=== PATIENT | male | born 1985 | race American Indian/Alaskan Native ===

== ENCOUNTER 2021-12-19 17:07 | Emergency (ER) | payer OTHER ==
--- NOTE | 2021-12-19 23:18 | Emergency Department Report ---
ED General Adult HPI - General Chief complaint: Allergic Reaction Stated complaint: SWOLLEN FACE Source: patient Mode of arrival: Ambulatory Limitations: No Limitations - History of Present Illness Initial comments: Patient is a 36-year-old -[place] male with no past medical history who presents to the ED with complaint of acute onset persistent painful swollen mild erythematous maculopapular rash on left temporal scalp for the last 3 days. Patient states that he shaved the his face about 5 days ago and developed a small papular rash which has been painful and that he noticed about 12 hours ago that the rash had opened and was draining thick purulent discharge. Patient states that he then progressed and squeezed the wound and emptied the contents of the rash but that the pain and the swelling has worsened. Patient denies fever, chills, nausea and vomiting, headache, dizziness, syncope, traumatic injury, cough, sore throat and neck pain. MD Complaint: Swollen painful rash on left temporal area of the face -: Sudden, days(s) (3) Location: face (left temporal face) Radiation: non-radiation Severity scale (0 -10): 8 Quality: aching, sharp Consistency: constant Improves with: none Worsens with: none Associated Symptoms: denies other symptoms, rash (swollen painful rash on left temporal face). denies: confusion, chest pain, cough, diaphoresis, fever/chills, headaches, loss of appetite, malaise, nausea/vomiting, shortness of breath, syncope, weakness Treatments Prior to Arrival: none - Related Data Previous Rx's Medication Instructions Recorded Last Taken Type Ibuprofen [Motrin] 800 mg PO Q8HR PRN #30 tablet 12/19/21 Unknown Rx Sulfamethoxazole/Trimethoprim 1 each PO Q12H #20 tab 12/19/21 Unknown Rx [Bactrim DS TAB] Allergies Allergy/AdvReac Type Severity Reaction Status Date / Time No Known Allergies Allergy Verified 12/19/21 17:18 ED Review of Systems ROS: Stated complaint: SWOLLEN FACE Other details as noted in HPI Constitutional: denies: chills, fever Eyes: denies: eye pain, eye discharge, vision change ENT: other (swollen painful rash on left temporal scalp). denies: ear pain, throat pain Respiratory: denies: cough, shortness of breath, wheezing Cardiovascular: denies: chest pain, palpitations Endocrine: no symptoms reported Gastrointestinal: denies: abdominal pain, nausea, vomiting, diarrhea Genitourinary: denies: urgency, dysuria Musculoskeletal: denies: back pain, joint swelling, arthralgia Skin: rash (swollen painful rash on left temporal scalp). denies: lesions Neurological: denies: headache, weakness, paresthesias Psychiatric: denies: anxiety, depression Hematological/Lymphatic: denies: easy bleeding, easy bruising ED Past Medical Hx - Past Medical History Previous Medical History?: No - Surgical History Past Surgical History?: No - Medications Home Medications: Home Medications Medication Instructions Recorded Confirmed Last Taken Type Ibuprofen [Motrin] 800 mg PO Q8HR PRN #30 tablet 12/19/21 Unknown Rx Sulfamethoxazole/Trimethoprim 1 each PO Q12H #20 tab 12/19/21 Unknown Rx [Bactrim DS TAB] ED Physical Exam - General Limitations: No Limitations General appearance: alert, in no apparent distress - Head Head exam: Present: atraumatic, normocephalic, normal inspection - Eye Eye exam: Present: normal appearance, PERRL, EOMI Pupils: Present: normal accommodation - ENT ENT exam: Present: normal exam, normal orophraynx, mucous membranes moist, TM's normal bilaterally, normal external ear exam - Neck Neck exam: Present: normal inspection, full ROM. Absent: tenderness - Respiratory Respiratory exam: Present: normal lung sounds bilaterally. Absent: respiratory distress, wheezes, rales, rhonchi, chest wall tenderness, accessory muscle use - Cardiovascular Cardiovascular Exam: Present: regular rate, normal rhythm, normal heart sounds. Absent: systolic murmur, diastolic murmur, rubs, gallop - GI/Abdominal GI/Abdominal exam: Present: soft, normal bowel sounds. Absent: tenderness, guarding, rebound, hyperactive bowel sounds, hypoactive bowel sounds, organomegaly - Extremities Exam Extremities exam: Present: normal inspection, full ROM, normal capillary refill. Absent: tenderness - Back Exam Back exam: Present: normal inspection, full ROM. Absent: tenderness, CVA tenderness (R), CVA tenderness (L), muscle spasm, paraspinal tenderness - Neurological Exam Neurological exam: Present: alert, oriented X3, CN II-XII intact, normal gait, reflexes normal - Psychiatric Psychiatric exam: Present: normal affect, normal mood - Skin Skin exam: Present: warm, dry, intact, rash (swollen tender maculopapular nonfluctuant rash on left temporal scalp), erythema. Absent: normal color ED Course Vital Signs 12/19/21 17:18 Temperature 98.4 F Pulse Rate 86 Respiratory 16 Rate Blood Pressure 127/88 [Left] ED Medical Decision Making - Medical Decision Making This is a 36-year-old -[place] male with no past medical history who presents to the ED with complaint of acute onset persistent painful swollen mild erythematous maculopapular rash on left temporal scalp for the last 3 days. Patient states that he shaved the his face about 5 days ago and developed a small papular rash which has been painful and that he noticed about 12 hours ago that the rash had opened and was draining thick purulent discharge. Patient states that he then progressed and squeezed the wound and emptied the contents of the rash but that the pain and the swelling has worsened. In the ED, patient is alert and oriented x3 and is not in any distress. Based on the history and physical exam findings, the patient will discharge home on pain medications and advised to follow-up with his primary care physician in 7 to 10 days for reevaluation or return to the ED immediately if symptoms get worse. - Differential Diagnosis folliculitis; cellulitis; cutaneous abscess Critical care attestation.: If time is entered above; I have spent that time in minutes in the direct care of this critically ill patient, excluding procedure time. ED Disposition Clinical Impression: Cutaneous abscess of face, Cellulitis and abscess of face, Acute folliculitis Disposition: 01 HOME / SELF CARE / HOMELESS Is pt being admited?: No Does the pt Need Aspirin: No Condition: Stable Instructions: Cellulitis, Adult, [id number], Skin Abscess, [id number], Folliculitis Additional Instructions: Take medication with food, drink plenty of fluids and follow-up with your primary care physician in 7 to 10 days for reevaluation. Return to the ED immediately if symptoms get worse. Prescriptions: Sulfamethoxazole/Trimethoprim [Bactrim DS TAB] 1 each PO Q12H #20 tab Ibuprofen [Motrin] 800 mg PO Q8HR PRN #30 tablet PRN Reason: Pain , Severe (7-10) Referrals: [facility] [Provider Group] - 7-10 days Forms: Work/School Release Form(ED) Time of Disposition: 23:34 Print Language: ESTONIAN
[2021-12-20 00:40] VITALS: BP 109/81
== END 2021-12-20 00:40 | disposition home or self-care (01) ==
LOC: ED 17:07
DX: L02.01 Cutaneous abscess of face (principal); L03.211 Cellulitis of face; L73.9 Follicular disorder, unspecified; Z79.899 Other long term (current) drug therapy
CPT/HCPCS: 99282